=== PATIENT | male | born 1935 | race Caucasian/White ===

== ENCOUNTER 2023-05-08 07:54 | Outpatient (CLI) | payer MEDICARE, BC, SELFPAY | END 2023-05-08 07:55 | disposition home or self-care (01) | LOC: AMB 05-10 01:43 | PROVIDERS: Visit Provider Internal Medicine | DX: R55 Syncope and collapse (principal); R42 Dizziness and giddiness | CPT/HCPCS: A0425; A0427; A0433 ==